=== PATIENT | female | born 1980 | race African-American/Black ===

== ENCOUNTER 2018-12-04 12:57 | Emergency (ER) | payer OTHER ==
[~2018-12-04] VITALS: Ht 165.1 cm; Wt 104.3 kg
[2018-12-04] MEDS ORDERED: ASPirin 81 mg TAB PO ONE (13:15)
[2018-12-04 14:44] LABS: Basophils # (auto) 0 uL; Eosinophils # (auto) 0.1 uL; Lymphocytes # (auto) 1.3 uL; Monocytes # (auto) 0.6 uL; Nucleated Red Blood Cells % 0.1 %
[2018-12-04 14:48] LABS: Basophils % (auto) 0.4 % (0.0-2.0); Eosinophils % (auto) 1.1 % (0.0-7.0); Hematocrit 31.4 % (36.0-46.0); Hemoglobin 9.8 g/dL (12.2-16.2); Lymphocytes % (auto) 15.4 % (10.0-50.0); Mean Corpuscular Hemoglobin 22.4 pg (28.0-32.0); Mean Corpuscular Hgb Conc. 31.2 g/dL (32.0-36.0); Mean Corpuscular Volume 71.7 fL (80.0-100.0); Monocytes % (auto) 6.6 % (0.0-12.0); Neutrophils # (auto) 6.5 uL; Neutrophils % (auto) 76.5 % (37.0-80.0); Platelet Count (auto) 438 10^3/uL (140-450); Red Blood Cells 4.38 10^6/uL (4.0-5.20); Red Cell Distribution Width 19.1 % (11.8-14.3); White Blood Cell 8.6 10^3/uL (4.4-10.8)
[2018-12-04 15:02] LABS: Calcium 8.8 mg/dL (8.5-10.1); Chloride 106 mmol/L (98-107); Sodium 139 mmol/L (136-145)
[2018-12-04 15:10] LABS: Alanine Aminotransferase 21 U/L (13-56); Albumin 3.8 g/dL (3.4-5.0); Alkaline Phosphatase 51 U/L (45-117); Anion Gap 5 (5-15); Aspartate Aminotransferase 14 U/L (15-37); BUN/Creatinine Ratio 15.7; Bilirubin, Total 0.3 mg/dL (0.2-1.0); Blood Urea Nitrogen 18 mg/dL (7-18); Carbon Dioxide 28 mmol/L (21-32); GFR African American 68 mL/min; GFR Non-African American 56 mL/min; Glucose 97 mg/dL (74-106); Total Protein 7.5 g/dL (6.4-8.2)
[2018-12-04 15:15] LABS: Potassium 2.8 mmol/L (3.5-5.1)
[2018-12-04 15:29] VITALS: BP 143/83
[2018-12-04] MEDS ORDERED: POTASSIUM CHL 20 Meq TABLET PO ONE (15:30)
[2018-12-04 15:36] LABS: Urine Bacteria NONE SEEN /hpf (None Seen); Urine Blood Negative /uL (Negative); Urine Specific Gravity 1.014 (1.001-1.035); Urine WBC 11 /hpf (0 - 5)
[2018-12-04] MEDS ORDERED: cefTRIAXone 1GM/50ML D5W 50 ML IV ONE (15:45)
== END 2018-12-04 16:23 | disposition home or self-care (01) ==
LOC: ER 13:07
DX: R07.89 Other chest pain (principal); N39.0 Urinary tract infection, site not specified; I10 Essential (primary) hypertension
CPT/HCPCS: 36415; 71045; 80053; 81001; 81025; 84484; 85025; 93005

== ENCOUNTER 2019-01-15 19:35 | Emergency (ER) | payer OTHER ==
[~2019-01-15] VITALS: Ht 165.1 cm; Wt 104.3 kg
[2019-01-15] MEDS ORDERED: methylPREDNISolone SOD SUCC 125 MG/2 ML VL IM ONE (21:00)
[2019-01-15] MEDS ORDERED: cefTRIAXone SOD 1,000 MG VL IM ONE (21:00)
[2019-01-15] MEDS ORDERED: ACETAMINOPHEN/CODEINE#3 (300/30mg) TAB PO ONE (21:00)
[2019-01-15] MEDS ORDERED: PHENAZOPYRIDINE HCL 100 MG TAB PO ONE (21:00)
[2019-01-15 21:41] VITALS: BP 148/91
== END 2019-01-15 21:46 | disposition home or self-care (01) ==
LOC: ER 19:37
DX: J06.9 Acute upper respiratory infection, unspecified (principal); N39.0 Urinary tract infection, site not specified; I10 Essential (primary) hypertension
CPT/HCPCS: 81002; 81025; 96372; 99283; J0696; J2930